=== PATIENT | female | born 1930 | race Caucasian/White ===

== ENCOUNTER → 2016-04-19 | Outpatient (CLI) | payer OTHER, MEDICARE ==
--- NOTE | 2016-04-19 17:01 | MA ---
Screening Digital Mammogram, With iCAD Analysis Clinical Indications: Routine screening. Technique: Standard cephalocaudal projections are obtained. Digital breast tomosynthesis was perfor med in the MLO projection with reconstruction at 1.0-mm slice thickness and composite MLO views recon structed. This examination is processed by the iCAD computer aided detection system. Comparison: March 2015, February 2014, December 2012, October 2011, August 2010, August 2009, August 2008. Breast Density: Type C: Heterogeneously dense. Findings: CAD was reviewed. No masses, suspicious calcifications, or secondary signs of malignancy are seen. There has been no significant change in the appearance of either breast. Impression: Mammographic screening in one year as long as physical examination is negative in this p atient with heterogeneously dense breasts.. Recommendation: Routine mammographic screening in one year as long as physical examination is negati ve in this patient with heterogeneously dense breast parenchyma. [facility] will send a result letter to the patient. Negative mammography should not preclude additional workup of a clinically suspicious finding. The patient's information is entered into a reminder system with a target due date for her next mammo gram.
== END ==
LOC: FIMAGING 13:48
DX: Z12.31 Encounter for screening mammogram for malignant neoplasm of breast (principal)
CPT/HCPCS: G0202

== ENCOUNTER → 2017-03-21 | Outpatient (CLI) | payer OTHER, MEDICARE | LOC: BHFA 08:30 | PROVIDERS: ATTEND Internal Medicine Cardiovascular Disease | DX: R07.9 Chest pain, unspecified (principal); I25.10 Atherosclerotic heart disease of native coronary artery without angina pectoris | CPT/HCPCS: 78452; 93017; A9500; J2785 ==

== ENCOUNTER → 2017-05-08 | Outpatient (CLI) | payer OTHER, MEDICARE | LOC: FIMAGING 10:10 | PROVIDERS: ATTEND Family Medicine | DX: Z12.31 Encounter for screening mammogram for malignant neoplasm of breast (principal) ==

== ENCOUNTER → 2018-05-21 | Outpatient (CLI) | payer OTHER, MEDICARE | LOC: FIMAGING 11:20 | PROVIDERS: ATTEND Family Medicine | DX: Z12.31 Encounter for screening mammogram for malignant neoplasm of breast (principal); M48.02 Spinal stenosis, cervical region; M43.12 Spondylolisthesis, cervical region; M50.322 Other cervical disc degeneration at C5-C6 level; M53.82 Other specified dorsopathies, cervical region; M43.14 Spondylolisthesis, thoracic region ==